=== PATIENT | female | born 1950 | race Caucasian/White ===

== ENCOUNTER 2016-07-26 09:55 | Emergency (ER) | payer MEDICARE, BC ==
[2016-07-26 11:05] VITALS: BP 153/88
--- NOTE | 2016-07-26 11:36 | UC ---
Throat Pain/Nasal Giovani HPI - HPI Summary HPI Summary: 2 days of worsening cough and sorethroat---She gets this every year and her pcp gives her antibiotics. Education provided re-viral illness anf the important to take a/b only should dx worsened and continue over another week - History of Current Complaint Chief Complaint: UCRespiratory Stated Complaint: COUGH, SORE THROAT Time Seen by Provider: 07/26/16 11:28 Hx Obtained From: Patient Hx Last Menstrual Period: NA ?: No Onset/Duration: Sudden Onset, Lasting Days - 2 Severity: Mild Cough: Nonproductive Associated Signs & Symptoms: Positive: Sinus Discomfort, Nasal Discharge - Allergies/Home Medications Allergies/Adverse Reactions: Allergies Allergy/AdvReac Type Severity Reaction Status Date / Time Amoxicillin [From Augmentin] Allergy Intermediate Swelling Verified 03/29/15 12: 11 Clarithromycin [From Biaxin] Allergy Intermediate Swelling Verified 03/29/15 12: 11 Clavulanic Acid Allergy Intermediate Swelling Verified 03/29/15 12:11 [From Augmentin] Erythromycin Allergy Intermediate Swelling Verified 03/29/15 12:11 Metformin Allergy Mild GI Upset Verified 03/29/15 12:11 Pioglitazone [From Actos] Allergy Mild GI Upset Verified 03/29/15 12:11 Home Medications: Home Medications Aspirin [Aspirin 81 MG TAB] 81 mg PO DAILY 07/26/16 [History Confirmed 07/26/16] PMH/Surg Hx/FS Hx/Imm Hx Previously Healthy: Yes Endocrine History Of: Reports: Diabetes Denies: Thyroid Disease Cardiovascular History Of: Denies: Cardiac Disorders, Hypertension, Pacemaker/ICD Respiratory History Of: Reports: Bronchitis - HAS HAD IN THE PAST Denies: COPD, Asthma GI/ History Of: Reports: Kidney Stones Denies: Ulcer, Renal Disease Psychological History Of: Reports: Anxiety, Depression - Surgical History Surgical History: Yes Surgery Procedure, Year, and Place: LEFT ANKLE Repair [facility] 2010. [place] LATERAL KNEE SURGERY LEFT 2010. right Hip Replacement July 2013 - Family History Known Family History: Positive: None Family History: no reported cardiovascular issues in family lineage - Social History Occupation: Retired Lives: With Family Alcohol Use: None Substance Use Type: None Smoking Status (MU): Never Smoked Tobacco Have You Smoked in the Last Year: No Review of Systems Constitutional: Negative Skin: Negative Eyes: Negative ENT: Sore Throat, Nasal Discharge Respiratory: Cough Cardiovascular: Negative Gastrointestinal: Negative Genitourinary: Negative Motor: Negative Neurovascular: Negative Musculoskeletal: Negative Neurological: Negative Psychological: Negative All Other Systems Reviewed And Are Negative: Yes Physical Exam Triage Information Reviewed: Yes Appearance: Well-Appearing, No Pain Distress, Well-Nourished Vital Signs: Initial Vital Signs Temp 97.7 F 07/26/16 11:03 Pulse 92 07/26/16 11:03 Resp 16 07/26/16 11:03 BP 153/88 07/26/16 11:03 Pulse Ox 98 07/26/16 11:03 Vital Signs Reviewed: Yes Eye Exam: Normal Eyes: Positive: Conjunctiva Clear ENT Exam: Normal ENT: Positive: Normal ENT inspection, Hearing grossly normal, Pharyngeal erythema, TMs normal. Negative: Nasal congestion, Nasal drainage, Tonsillar swelling, Tonsillar exudate, Trismus, Muffled/hoarse voice Dental Exam: Normal Neck exam: Normal Neck: Positive: Supple, Nontender, No Lymphadenopathy Respiratory Exam: Normal Respiratory: Positive: Chest non-tender, Lungs clear, Normal breath sounds, No respiratory distress, No accessory muscle use Cardiovascular Exam: Normal Cardiovascular: Positive: RRR, No Murmur, Pulses Normal Musculoskeletal Exam: Normal Musculoskeletal: Positive: Strength Intact, ROM Intact, No Edema Neurological Exam: Normal Neurological: Positive: Alert Psychological Exam: Normal Skin Exam: Normal Throat Pain/Nasal Course/Dx - Course Assessment/Plan: ALbuterol, robitussin and Codiene, doxycycline if not relief in sx (pt states is is not allergic to z-max, but got to the pharmacy and thought she was)rest increase fluids follow with pcp - Differential Dx/Diagnosis Differential Diagnosis/HQI/PQRI: Influenza, Otitis Media, Pharyngitis, Sinusitis , URI Provider Diagnoses: Bronchititis Discharge - Discharge Plan Condition: Stable Disposition: HOME Prescriptions: Albuterol HFA INHALER* [Ventolin HFA Inhaler*] 2 puff INH Q4H PRN #1 mdi PRN Reason: cough Azithromycin TAB* [Zithromax TAB (Z-GAUDENCIO) 250 mg #6 tabs] 2 tab PO SEE INSTRUCTIONS #1 gaudencio DOXYcycline CAP(*) [DOXYcycline 100MG CAP(*)] 100 mg PO BID #20 cap Spacer/Aerosol-Holding Chamber [Aerochamber Plus] 1 mis XX SEE INSTRUCTIONS #1 mis guaiFENesin/CODIEN 100MG-10MG* [Robitussin AC 100Mg-10Mg*] 10 ml PO Q6H PRN # 120 udc MDD 40cc PRN Reason: Cough Patient Education Materials: Acute Bronchitis (ED), DASH Eating Plan (ED), Hypertension (ED), How to Use a Metered-Dose Inhaler and a Spacer (ED) Referrals: Annie Sotelo RN [Primary Care Provider] - 2 Weeks Additional Instructions: Your Blood pressure today is 153/88...This is high and 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
== END 2016-07-26 11:50 | disposition home or self-care (01) ==
LOC: UCEAST 09:55
DX: J40 Bronchitis, not specified as acute or chronic (principal); E11.9 Type 2 diabetes mellitus without complications; N20.0 Calculus of kidney; F41.9 Anxiety disorder, unspecified; F32.9 Major depressive disorder, single episode, unspecified; Z88.3 Allergy status to other anti-infective agents; Z79.82 Long term (current) use of aspirin; Z96.641 Presence of right artificial hip joint
CPT/HCPCS: 99212; G0463

== ENCOUNTER 2016-09-05 11:43 | Emergency (ER) | payer MEDICARE, BC ==
[2016-09-05] MEDS ORDERED: NS 0.9% 1000 ML* 1,000 ML IV ONE (13:26)
[2016-09-05 13:39] LABS: Hematocrit 39 % (35-47); Hemoglobin 12.5 g/dl (12.0-16.0); Mean Corpuscular HGB Conc 32 g/dl (31-36); Mean Corpuscular Hemoglobin 29 pg (27-31); Mean Corpuscular Volume 88 fL (80-97); Mean Platelet Volume 8 um3 (7.4-10.4); Red Blood Count 4.37 10^6/ul (4.0-5.4); Red Cell Distribution Width 14 % (10.5-15); White Blood Count 15.7 10^3/ul (3.5-10.8)
[2016-09-05 13:43] LABS: Add Diff/Slide Review? Slide Review Added; Comments Flag Yes
[2016-09-05 13:54] LABS: Albumin 3.4 g/dL (3.2-5.2); BUN/Creatinine Ratio 15.7 (8-20); C Reactive Protein 242.51 mg/L (< 5.00); Calcium 9.4 mg/dL (8.6-10.3); EGFR African American 88.5 (>60); EGFR Non-African American 68.8 (>60); Globulin 3.7 g/dL (2-4); Potassium 4.3 mmol/L (3.5-5.0); Total Bilirubin 0.7 mg/dL (0.2-1.0); Total Protein 7.1 g/dL (6.4-8.9)
--- NOTE | 2016-09-05 15:38 | RAD ---
HISTORY: Right upper quadrant pain COMPARISONS: October 11, 2013 TECHNIQUE: Multiple transverse and longitudinal ultrasound images were obtained of the right upper quadrant of the abdomen using grayscale, color Doppler, and spectral Doppler imaging. FINDINGS: LIVER: The liver is diffusely echogenic and coarse in echotexture, with decreased acoustic transmission. The liver is otherwise normal in shape, size, and contour. There is normal monophasic hepatopedal flow of the portal vein on Doppler imaging. BILIARY TREE: There is no intrahepatic or extrahepatic biliary dilatation. The common duct measures 0.4 cm. GALLBLADDER: The gallbladder is distended. Multiple shadowing echogenic foci consistent with gallstones are noted. There is no gallbladder wall thickening, pericholecystic fluid, or sonographic Haskins sign. PANCREAS: The head of the pancreas is unremarkable. The tail of the pancreas is not well visualized secondary to overlying bowel gas. RIGHT KIDNEY: The right kidney is normal in shape, size, contour, and echogenicity. There is no hydronephrosis or nephrolithiasis. The right kidney measures 12.4 x 5.3 x 6.6 cm. AORTA AND IVC: The aorta and IVC are unremarkable. FLUID: There are no pleural effusions. There is no free fluid within the hepatorenal recess. OTHER FINDINGS: None. IMPRESSION: 1. CHOLELITHIASIS, WITHOUT SONOGRAPHIC FEATURES OF ACUTE CHOLECYSTITIS. 2. FATTY INFILTRATION OF THE LIVER
[2016-09-05] MEDS ORDERED: Iohexol 300* (CONTRAST) 10 ML SDV IV ONE (16:53)
[2016-09-05 18:48] LABS: Urine Bacteria Absent (Absent); Urine Bilirubin Negative (Negative); Urine Glucose Negative (Negative); Urine Nitrite Negative (Negative)
--- NOTE | 2016-09-05 19:46 | RAD ---
CLINICAL HISTORY: Right lower quadrant pain COMPARISON: October 11, 2013 TECHNIQUE: Multiple contiguous axial CT scans were obtained of the abdomen and pelvis after the administration of intravenous contrast. Coronal and sagittal multiplanar reformations are submitted for review. Oral contrast was administered. Delayed images were obtained through the abdomen and pelvis. FINDINGS: LUNG BASES: The lung bases are clear. LIVER: There is low-attenuation lesion of the right lobe of liver. This is stable from 2014. The stability is consistent with benign process. The liver is diffusely low in attenuation compared to the spleen BILE DUCTS: There is no intrahepatic or extrahepatic biliary dilatation. GALLBLADDER: Multiple gallstones are noted. There is no pericholecystic inflammatory change. PANCREAS: The pancreas is normal, without mass or ductal dilatation. SPLEEN: Normal in size and appearance. UPPER GI TRACT: Evaluation of the gastrointestinal tract is limited by incomplete gastric distention. The upper GI tract is unremarkable. SMALL BOWEL AND MESENTERY: The small bowel is normal in contour, course, and caliber. There is no obstruction or dilatation. COLON: There are multiple diverticula of the sigmoid colon, descending colon, and hepatic flexure. There is questionable polypoid mucosal thickening of the ascending colon.. There is no pericolonic inflammatory change. There is a tubular, vermiform, hollow viscus that is blind ending, and originates from the cecum, consistent with a normal appendix. There is no periappendiceal inflammatory change. This is best seen on axial images 53 through 61 ADRENALS: Normal bilaterally. KIDNEYS: There is a striated nephrogram on the right. There is no appreciable hydronephrosis or nephrolithiasis, though evaluation of the distal ureters limited by streak artifact from a right hip prosthesis. BLADDER: The bladder is smooth in contour. PELVIC ORGANS: The uterus appears fibroid AORTA: The aorta is normal. IVC: Unremarkable LYMPH NODES: There is no lymphadenopathy by size criteria. ABDOMINAL WALL: There is no evidence for abdominal wall hernia. BONES AND SOFT TISSUES: Degenerative changes are noted of the spine. The patient is status post right hip arthroplasty OTHER: None IMPRESSION: 1. NORMAL APPENDIX. 2. STRIATED NEPHROGRAM OF THE RIGHT KIDNEY SUGGESTIVE OF PYELONEPHRITIS. 3. CHOLELITHIASIS. 4. DIVERTICULOSIS. 5. THERE IS QUESTIONABLE POLYP WITH MUCOSAL THICKENING OF THE COLON NEAR THE HEPATIC FLEXURE. RECOMMEND CONSIDERATION OF CORRELATION WITH DIRECT VISUALIZATION IN THE NONACUTE SETTING. 6. FATTY LIVER. 7. FIBROID UTERUS
[2016-09-05] MEDS ORDERED: HYDROcodone/ACETAMIN 5-325 MG* 1 TAB PO ONE (20:16)
[2016-09-05] MEDS: Ciprofloxacin TAB* 500 MG PO ONE ×2 (20:56)
[2016-09-05 21:07] VITALS: BP 144/66
--- NOTE | 2016-09-06 12:47 | ED ---
olivia Morales Timothy, scribed for Matt Howard MD on 09/05/16 at 1316 . Abdominal Pain/Female - HPI Summary HPI Summary: La Nena Leon is a 65 yo female presenting to [facility] with 2/10 intermittent "pulsating" RLQ abd pain for the past week accompanied by chills, diaphoresis, nausea, myalgia, fatigue, and loss of appetite. She states she vomited 1x and that it was pure fluid due to her lack of appetite. She also claims her stool looks "peace". She states she was in [place] recently and when there was constipated , but upontaking a laxative she noticed the peace stools. She states that rubbing the tender area of her abd alleviates some of the pain. She denies any diarrhea or urinary Sx. She states she had bronchitis recently. Her MHx includes bronchitis, kidney stones, DM, depression, anxiety. - History of Current Complaint Chief Complaint: EDAbdPain Stated Complaint: LOW ABD PAIN Time Seen by Provider: 09/05/16 13:11 Hx Obtained From: Patient Hx Last Menstrual Period: NA Onset/Duration: Gradual Onset, Lasting Days, Still Present Timing: Constant Severity Initially: Moderate Severity Currently: Moderate Pain Intensity: 2 Pain Scale Used: 0-10 Numeric Location: Discrete At: RLQ Radiates: No Character: Other: - "pulsating" Alleviating Factor(s): Other: - rubbing of tender area Associated Signs and Symptoms: Positive: Diaphoresis, Constipation, Nausea, Vomiting, Other: - myalgia, fatigue, chills, loss of appetite Allergies/Adverse Reactions: Allergies Allergy/AdvReac Type Severity Reaction Status Date / Time Amoxicillin [From Augmentin] Allergy Intermediate Swelling Verified 09/05/16 16: 51 Clarithromycin [From Biaxin] Allergy Intermediate Swelling Verified 09/05/16 16: 51 Clavulanic Acid Allergy Intermediate Swelling Verified 09/05/16 16:51 [From Augmentin] Erythromycin Allergy Intermediate Swelling Verified 09/05/16 16:51 Metformin Allergy Mild GI Upset Verified 09/05/16 16:51 Pioglitazone [From Actos] Allergy Mild GI Upset Verified 09/05/16 16:51 Home Medications: Home Medications Aspirin EC Low Dose* [Ecotrin EC Low Dose 81 MG*] 81 mg PO DAILY 09/05/16 [ History Confirmed 09/05/16] Glimepiride [Amaryl] 0.5 - 1 mg PO BID 09/05/16 [History Confirmed 09/05/16] SitaGLIPtin (NF) [Januvia (NF)] 100 mg PO DAILY 09/05/16 [History Confirmed ] PMH/Surg Hx/FS Hx/Imm Hx Endocrine/Hematology History: Reports: Hx Diabetes Denies: Hx Thyroid Disease Cardiovascular History: Denies: Hx Hypertension, Hx Pacemaker/ICD Respiratory History: Denies: Hx Asthma, Hx Chronic Obstructive Pulmonary Disease (COPD) GI History: Denies: Hx Ulcer History: Reports: Hx Kidney Stones Denies: Hx Renal Disease Sensory History: Reports: Hx Contacts or Glasses - GLASSES Denies: Hx Hearing Aid Opthamlomology History: Reports: Hx Contacts or Glasses - GLASSES Psychiatric History: Reports: Hx Anxiety, Hx Depression Denies: Hx Panic Disorder - Surgical History Surgery Procedure, Year, and Place: LEFT ANKLE Repair [facility] 2010. [place] LATERAL KNEE SURGERY LEFT 2010. right Hip Replacement July 2013 Hx Anesthesia Reactions: No Infectious Disease History: No Infectious Disease History: Denies: Hx Clostridium Difficile, Hx Hepatitis, Hx Human Immunodeficiency Virus (HIV), Hx of Known/Suspected MRSA, Hx Shingles, Hx Tuberculosis, Hx Known/ Suspected VRE, Hx Known/Suspected VRSA, History Other Infectious Disease, Traveled Outside the [place] in Last 30 Days - Family History Known Family History: Positive: Hypertension, Diabetes Negative: Cardiac Disease, Blood Disorder Family History: no reported cardiovascular issues in family lineage - Social History Alcohol Use: None Substance Use Type: Reports: None Smoking Status (MU): Never Smoked Tobacco Have You Smoked in the Last Year: No Review of Systems Positive: Chills, Fatigue, Skin Diaphoresis Eyes: Negative ENT: Negative Cardiovascular: Negative Respiratory: Negative Positive: Abdominal Pain, Vomiting, Nausea, Other - constipation, peace stool, loss of appetite. Negative: Diarrhea Genitourinary: Negative Positive: Myalgia Skin: Negative Neurological: Negative Psychological: Normal All Other Systems Reviewed And Are Negative: Yes Physical Exam Triage Information Reviewed: Yes Vital Signs On Initial Exam: Initial Vitals Temp Pulse Resp BP Pulse Ox 97.6 F 88 20 118/64 97 09/05/16 11:58 09/05/16 11:58 09/05/16 11:58 09/05/16 11:58 09/05/16 11:58 Vital Signs Reviewed: Yes Appearance: Positive: No Pain Distress, Well-Nourished, Ill-Appearing Skin: Positive: Warm, Skin Color Reflects Adequate Perfusion, Dry Head/Face: Positive: Normal Head/Face Inspection Eyes: Positive: Normal ENT: Positive: Normal ENT inspection, Other - moist oral mucosa Neck: Positive: Supple, Nontender Respiratory/Lung Sounds: Positive: Clear to Auscultation, Breath Sounds Present Cardiovascular: Positive: RRR Abdomen Description: Positive: Soft. Negative: Nontender - Tenderness in the RUQ Bowel Sounds: Positive: Present Musculoskeletal: Positive: Normal Neurological: Positive: Normal Psychiatric: Positive: Normal, Affect/Mood Appropriate - [place] Coma Scale Coma Scale Total: 15 Diagnostics - Vital Signs Vital Signs Temp Pulse Resp BP Pulse Ox 09/05/16 13:00 83 18 127/72 96 09/05/16 12:54 136 88 09/05/16 12:52 117/88 09/05/16 12:01 97.6 F 89 20 118/64 94 09/05/16 11:58 97.6 F 88 20 118/64 97 - Laboratory Lab Results: Lab Results 09/05/16 09/05/16 09/05/16 Range/Units 13:27 13:27 13:27 WBC 15.7 H (3.5-10.8) 10^3/ul RBC 4.37 (4.0-5.4) 10^6/ul Hgb 12.5 (12.0-16.0) g/dl Hct 39 (35-47) % MCV 88 (80-97) fL MCH 29 (27-31) pg MCHC 32 (31-36) g/dl RDW 14 (10.5-15) % Plt Count 305 (150-450) 10^3/ul MPV 8 (7.4-10.4) um3 Neut % (Auto) 75.5 (38-83) % Lymph % (Auto) 12.2 L (25-47) % [place] % (Auto) 10.3 H (1-9) % Eos % (Auto) 1.0 (0-6) % Baso % (Auto) 1.0 (0-2) % Absolute Neuts (auto) 11.9 H (1.5-7.7) 10^3/ul Absolute Lymphs (auto) 1.9 (1.0-4.8) 10^3/ul Absolute Monos (auto) 1.6 H (0-0.8) 10^3/ul Absolute Eos (auto) 0.1 (0-0.6) 10^3/ul Absolute Basos (auto) 0.2 (0-0.2) 10^3/ul Absolute Nucleated RBC 0 10^3/ul Nucleated RBC % 0 Sodium 132 L (133-145) mmol/L Potassium 4.3 (3.5-5.0) mmol/L Chloride 98 L (101-111) mmol/L Carbon Dioxide 25 (22-32) mmol/L Anion Gap 9 (2-11) mmol/L BUN 13 (6-24) mg/dL Creatinine 0.83 (0.51-0.95) mg/dL Est GFR ( Amer) 88.5 (>60) Est GFR (Non-Af Amer) 68.8 (>60) BUN/Creatinine Ratio 15.7 (8-20) Glucose 166 H (70-100) mg/dL Lactic Acid 0.8 (0.5-2.0) mmol/L Calcium 9.4 (8.6-10.3) mg/dL Total Bilirubin 0.70 (0.2-1.0) mg/dL AST 19 (13-39) U/L ALT 25 (7-52) U/L Alkaline Phosphatase 70 (34-104) U/L C-Reactive Protein 242.51 H (< 5.00) mg/L Total Protein 7.1 (6.4-8.9) g/dL Albumin 3.4 (3.2-5.2) g/dL Globulin 3.7 (2-4) g/dL Albumin/Globulin Ratio 0.9 L (1-3) Lipase 16 (11.0-82.0) U/L Urine Color Urine Appearance Urine pH (5-9) Ur Specific [place] (1.010-1.030) Urine Protein (Negative) Urine Ketones (Negative) Urine Blood (Negative) Urine Nitrate (Negative) Urine Bilirubin (Negative) Urine Urobilinogen (Negative) Ur Leukocyte Esterase (Negative) Urine WBC (Auto) (Absent) Urine RBC (Auto) (Absent) Ur Squamous Epith Cells (Absent) Ur Transition Epith Cell (Absent) Urine Bacteria (Absent) Urine Glucose (Negative) 09/05/16 Range/Units 18:35 WBC (3.5-10.8) 10^3/ul RBC (4.0-5.4) 10^6/ul Hgb (12.0-16.0) g/dl Hct (35-47) % MCV (80-97) fL MCH (27-31) pg MCHC (31-36) g/dl RDW (10.5-15) % Plt Count (150-450) 10^3/ul MPV (7.4-10.4) um3 Neut % (Auto) (38-83) % Lymph % (Auto) (25-47) % [place] % (Auto) (1-9) % Eos % (Auto) (0-6) % Baso % (Auto) (0-2) % Absolute Neuts (auto) (1.5-7.7) 10^3/ul Absolute Lymphs (auto) (1.0-4.8) 10^3/ul Absolute Monos (auto) (0-0.8) 10^3/ul Absolute Eos (auto) (0-0.6) 10^3/ul Absolute Basos (auto) (0-0.2) 10^3/ul Absolute Nucleated RBC 10^3/ul Nucleated RBC % Sodium (133-145) mmol/L Potassium (3.5-5.0) mmol/L Chloride (101-111) mmol/L Carbon Dioxide (22-32) mmol/L Anion Gap (2-11) mmol/L BUN (6-24) mg/dL Creatinine (0.51-0.95) mg/dL Est GFR ( Amer) (>60) Est GFR (Non-Af Amer) (>60) BUN/Creatinine Ratio (8-20) Glucose (70-100) mg/dL Lactic Acid (0.5-2.0) mmol/L Calcium (8.6-10.3) mg/dL Total Bilirubin (0.2-1.0) mg/dL AST (13-39) U/L ALT (7-52) U/L Alkaline Phosphatase (34-104) U/L C-Reactive Protein (< 5.00) mg/L Total Protein (6.4-8.9) g/dL Albumin (3.2-5.2) g/dL Globulin (2-4) g/dL Albumin/Globulin Ratio (1-3) Lipase (11.0-82.0) U/L Urine Color Yellow Urine Appearance Clear Urine pH 6.0 (5-9) Ur Specific [place] 1.008 L (1.010-1.030) Urine Protein 1+(30 mg/dl) H (Negative) Urine Ketones Negative (Negative) Urine Blood Negative (Negative) Urine Nitrate Negative (Negative) Urine Bilirubin Negative (Negative) Urine Urobilinogen Negative (Negative) Ur Leukocyte Esterase Trace H (Negative) Urine WBC (Auto) Trace(0-5/hpf) (Absent) Urine RBC (Auto) Trace(0-2/hpf) (Absent) Ur Squamous Epith Cells Present H (Absent) Ur Transition Epith Cell Present H (Absent) Urine Bacteria Absent (Absent) Urine Glucose Negative (Negative) Result Diagrams: 09/05/16 13:27 09/05/16 13:27 Lab Statement: Any lab studies that have been ordered have been reviewed, and results considered in the medical decision making process. - CT A/P CT Interpretation: Positive (See Comments) - IMPRESSION: 1. NORMAL APPENDIX. 2. STRIATED NEPHROGRAM OF THE RIGHT KIDNEY SUGGESTIVE OF PYELONEPHRITIS. 3. CHOLELITHIASIS. 4. DIVERTICULOSIS. 5. THERE IS QUESTIONABLE POLYP WITH MUCOSAL THICKENING OF THE COLON NEAR THE HEPATIC FLEXURE. RECOMMEND CONSIDERATION OF CORRELATION WITH DIRECT VISUALIZATION IN THE NONACUTE SETTING. 6. FATTY LIVER. 7. FIBROID UTERUS CT Interpretation Completed By: Radiologist - Ultrasound No standard instances Ultrasound Interpretation: Positive (See Comments) - IMPRESSION: 1. CHOLELITHIASIS, WITHOUT SONOGRAPHIC FEATURES OF ACUTE CHOLECYSTITIS. 2. FATTY INFILTRATION OF THE LIVER Ultrasound Interpretation Completed By: Radiologist - Gallbladder US Re-Evaluation - Re-Evaluation First Eval Re-Evaluation Time: 16:14 Change: Unchanged Comment: Discussed lab and imaging results with Pt, suggested CT A/P. Pt is agreeable to this course. Abdominal Pain Fem Course/Dx - Course Course Of Treatment: La Nena Leon is a 65 yo female presenting to [facility] with 2/ 10 "pulsating" RLQ abd pain with fatigue, chills, diaphoresis, nausea, myalgia, and loss of appetite for the past week. Pt medication list is reviewed this visit. In the ED course she received IV fluids. Her Gallbladder US suggests cholelithiasis without cholecystitis. Her CT A/P suggests: IMPRESSION: 1. NORMAL APPENDIX. 2. STRIATED NEPHROGRAM OF THE RIGHT KIDNEY SUGGESTIVE OF PYELONEPHRITIS. 3. CHOLELITHIASIS. 4. DIVERTICULOSIS. 5. THERE IS QUESTIONABLE POLYP WITH MUCOSAL THICKENING OF THE COLON NEAR THE HEPATIC. FLEXURE. RECOMMEND CONSIDERATION OF CORRELATION WITH DIRECT VISUALIZATION IN THE NONACUTE. SETTING. 6. FATTY LIVER. 7. FIBROID UTERUS. The source of Ms. Leon's symptoms is still uncertain. She clearly has a UTI without hydronephrosis. We could be missing a stone. Her WBC's are up a bit and this is nonspecific. I recommended covering the U/A, symptomatic treatment and close F/U. - Diagnoses Provider Diagnoses: Pyelonephritis Discharge - Discharge Plan Condition: Stable Disposition: HOME Prescriptions: Ciprofloxacin TAB* [Cipro Tab*] 500 mg PO BID #20 tab HYDROcodone/ACETAMIN 5-325 MG* [[place] 5-325 TAB*] 1 tab PO Q6H PRN #20 tab MDD 4 PRN Reason: Pain Patient Education Materials: Kidney Infection (ED) Referrals: Sanjiv ARMAS CREATIVE WRITING PROFESSOR,Annie [Primary Care Provider] - 2 Days Additional Instructions: Please follow up with your primary care physician regarding your visit to the emergency department today. Return to the emergency department with any new or recurring symptoms. The documentation as recorded by the olivia ly Timothy accurately reflects the service I personally performed and the decisions made by me, Matt Howard MD.
== END 2016-09-05 21:05 | disposition home or self-care (01) ==
LOC: ED 11:43
DX: N12 Tubulo-interstitial nephritis, not specified as acute or chronic (principal); R10.31 Right lower quadrant pain; K59.00 Constipation, unspecified; R11.2 Nausea with vomiting, unspecified; R53.83 Other fatigue; R63.0 Anorexia
CPT/HCPCS: 36415; 74177; 76705; 80053; 81003; 81015; 83605; 83690; 85025; 86140; 87040; 87086; 99283; A9270-GY; Q9967

== ENCOUNTER 2017-05-05 11:13 | Emergency (ER) | payer MEDICARE, BC ==
--- NOTE | 2017-05-05 12:23 | UC ---
UC General HPI - HPI Summary HPI Summary: 66 y/o female presents to the urgent care c/o mild lower back pain,fatigue, mild dizziness at times for the past 4 weeks. Pt reports symptoms started w/ the common cold, then she developed nasal congestion AVERY, diarrhea on and off and chills. She went to see her PCP about a weeks ago and she tested Negative for the flu. Her PCP told her it was a viral syndrome. However for the past week she has felt fatigue, sleeping too much and yesterday she developed mild lower back pain w/ hesitancy on urination. Pt states her HgA1c was 5.7 last week. She has decrease appetite, but she has been drinking fluids. AVERY is like dull 3/10, pressure like at times. She feels dizzy when she get up. Pt denies nasal congestion, cough, fever, SOB, chest pain, abdominal pain, Pelvic pain, N/ V/D. - History of Current Complaint Chief Complaint: UCGeneralIllness Stated Complaint: LOWER BACK PAIN DIARRHEA HEADACHE DIZZY Time Seen by Provider: 05/05/17 12:06 Hx Obtained From: Patient Hx Last Menstrual Period: NA Onset/Duration: Gradual Onset, Lasting Weeks - 4 weeks, Still Present, Worse Since - past week Timing: Constant Onset Severity: Moderate Current Severity: Mild Pain Intensity: 3 Associated Signs & Symptoms: Positive: Back Pain - mild lower back pain, Dizziness, Dysuria, Headache, Weakness. Negative: Confusion, Cough, Chest Pain , Decreased Responsiveness, Diarrhea, Decreased Oral Intake, Diaphoresis, Edema , Fever, Hematemesis, Hemoptysis, Immunocompromised, Melena, Nausea, Palpitations, Recent Medication Changes, Syncope, SOB, Vomiting, Wheezing - Allergy/Home Medications Allergies/Adverse Reactions: Allergies Allergy/AdvReac Type Severity Reaction Status Date / Time amoxicillin Allergy Rash Verified 05/05/17 11:59 clarithromycin [From Biaxin] Allergy Rash Verified 05/05/17 11:59 clavulanic acid Allergy Rash Verified 05/05/17 11:59 [From Augmentin] erythromycin base Allergy Rash Verified 05/05/17 11:59 metformin Allergy Rash Verified 05/05/17 11:59 pioglitazone [From Actos] Allergy Rash Verified 05/05/17 11:59 PMH/Surg Hx/FS Hx/Imm Hx Previously Healthy: Yes Endocrine History: Diabetes Psychological History: Depression - Surgical History Surgical History: Yes Surgery Procedure, Year, and Place: LEFT ANKLE Repair [facility] 2010. [place] LATERAL KNEE SURGERY LEFT 2010. right Hip Replacement July 2013 - Family History Known Family History: Positive: None, Hypertension, Diabetes Negative: Cardiac Disease, Blood Disorder Family History: no reported cardiovascular issues in family lineage - Social History Occupation: Retired Lives: With Family Alcohol Use: None Substance Use Type: None Smoking Status (MU): Never Smoked Tobacco Have You Smoked in the Last Year: No Review of Systems Constitutional: Negative Skin: Negative Eyes: Negative ENT: Ear Ache - RT ear pressure Respiratory: Negative Cardiovascular: Negative Gastrointestinal: Negative Genitourinary: Other - hesitancy Motor: Weakness Neurovascular: Negative Musculoskeletal: Other: - mild lower back pain Neurological: Headache Psychological: Negative Is Patient Immunocompromised?: No All Other Systems Reviewed And Are Negative: Yes Physical Exam Triage Information Reviewed: Yes Vital Signs: Initial Vital Signs Temp 98.1 F 05/05/17 11:53 Pulse 82 05/05/17 11:53 Resp 14 05/05/17 11:53 BP 141/85 05/05/17 11:53 Pulse Ox 99 05/05/17 11:53 - Additional Comments Vital Signs Reviewed: Yes General: well developed well nourished female sitting in the examining table w/ o any apparent distress Eyes: Positive: Conjunctiva Clear - PERRLA, EOMI, fundi grossly normal ENT: Positive: Normal ENT inspection, Hearing grossly normal, Pharynx normal, TMs normal - RT external ear canal impacted w/ cerumen unable to visualize TM. LF external ear canal clear and LF TM WNL, Other: - no maxillary or frontal sinus tenderness on percussion. Negative Nusrat-hallpike maneuver. Negative: Tonsillar swelling, Tonsillar exudate Dental Exam: Normal Neck: Positive: Supple, Nontender, No Lymphadenopathy Respiratory: Positive: Chest non-tender, Lungs clear, Normal breath sounds Cardiovascular: Positive: RRR, No Murmur, Pulses Normal, Brisk Capillary Refill Abdomen Description: Positive: Nontender, No Organomegaly, Soft. Negative: CVA Tenderness (R), CVA Tenderness (L) Bowel Sounds: Positive: Present Musculoskeletal Exam: Normal Musculoskeletal: Positive: Strength Intact, ROM Intact, No Edema Neurological Exam: Normal Neurological: Positive: Alert, Muscle Tone Normal, Other: - -Neuro: A&O x4, GCS 15, CN II-XII intact, no focal neuro deficits, normal [id number] or heel-to- hernandez testing. Romberg neg, no pronator drift, normal rapid alternating movements. Gait is normal, Psychological Exam: Normal Skin Exam: Normal Course/Dx - Course Course Of Treatment: 66 y/o female presents to the urgent care c/o mild lower back pain,fatigue, mild dizziness at times for the past 4 weeks. Pt reports symptoms started w/ the common cold, then she developed nasal congestion AVERY, diarrhea on and off and chills. She went to see her PCP about a weeks ago and she tested Negative for the flu. Her PCP told her it was a viral syndrome. However for the past week she has felt fatigue, sleeping too much and yesterday she developed mild lower back pain w/ hesitancy on urination. Pt states her HgA1c was 5.7 last week. She has decrease appetite, but she has been drinking fluids. AVERY is like dull 3/10, pressure like at times. She feels dizzy when she get up. Pt denies nasal congestion, cough, fever, SOB, chest pain, abdominal pain, Pelvic pain, N/V/D. Hx obtained. Pt w/ Dysuria and RT cerumen impaction on examiantion. RT ear irrigation performed by Nurse. RT external ear canl still w/ mild cerumen. Pt Rx debrox otic drops to soften cerumen. Orthostatic vital signs are WNL. UA: +leukoesteraces only. However Pt w/ Hx of recurrent UTI. Pt will be Rx macrobid and Pyridium Prophylactically. Urine sent for culture to r/o any abnormality. Pt will be notified of reult for further treatment or to stop medication.Pt's BP is elevated today advised to decrease salt in diet, monitor BP and f/u with PCP for further management Pt explained D/ c instructions.Pt understood and agreed w/ plan of care.Left the clinic ambulating , A&OX3 - Differential Dx - Multi-Symptom Differential Diagnoses: Urinary Tract Infection, Other Provider Diagnoses: 1-UTI. 2-Dysuria. 3-RT exteral ear canal cerumen impaction. 4-Elevated BP w/o Hx of HTN Discharge - Discharge Plan Condition: Stable Disposition: HOME Prescriptions: Carbamide Peroxide 6.5% OTIC* [DEBROX 6.5% Otic*] 5 drop RIGHT EAR BID #1 bottle Nitrofurantoin Macrocrystals* [Macrodantin*] 50 mg PO BID #14 cap Phenazopyridine TAB* [Pyridium 100 mg TAB*] 100 mg PO TID #6 tab Patient Education Materials: Urinary Tract Infection in Women (ED), Cerumen Impaction (ED), Low-Sodium Diet (ED) Referrals: Sanjiv ARMAS [employer]UNICATION ELECTRONIC TECHNICIAN,Annie [Primary Care Provider] - 3 Days Additional Instructions: 1- Please take Macrodantin 50mg PO BID x 7 days. Pyridium 100 mg PO TID x 2 days to alleviate urinary symptoms. Increase increase fluid intake. drink cranberry juice. 2-Urine sent for culture if any abnormality, you will be notified for further treatment. 3-Take tylenol PO to alleviate Headache. F/u wih your PCP in 2-3 days if not improvement of symptoms. If you developed severe dizziness and AVERY please go immediately to the ER for further treatment. Eat well , small portions, and drink plenty of fluids. 4-apply otic drops as directed to clear ear canal completely 4-Your BP is elevated today. please decrease salt in your diet, monitor BP and if it continues to be elevated please f/u with your PCP for further management
[2017-05-05 13:31] VITALS: BP 153/92
== END 2017-05-05 13:41 | disposition home or self-care (01) ==
LOC: UCEAST 11:13
DX: N39.0 Urinary tract infection, site not specified (principal); R30.0 Dysuria; H61.21 Impacted cerumen, right ear; R03.0 Elevated blood-pressure reading, without diagnosis of hypertension; M54.5 Low back pain; R42 Dizziness and giddiness; R51 Headache; R53.1 Weakness; E11.9 Type 2 diabetes mellitus without complications; F32.9 Major depressive disorder, single episode, unspecified; Z88.1 Allergy status to other antibiotic agents; Z88.8 Allergy status to other drugs, medicaments and biological substances; Z96.641 Presence of right artificial hip joint
CPT/HCPCS: 81003; 87086; 99213; G0463

== ENCOUNTER 2017-12-20 11:22 | Emergency (ER) | payer MEDICARE, BC ==
[2017-12-20 11:34] VITALS: BP 149/95
--- NOTE | 2017-12-20 11:43 | UC ---
Respiratory Complaint HPI - HPI Summary HPI Summary: c/o nasal congestion, malaise for the past 3 days and feeling of wheezing and hollowness in the chest. Cough is dry and happens at day and during the night. Denies fever , nasal discharge, facial pain or general malaise. She had remotely used inhalers for a short time but not ever since. Denies tobacco use, second hand smoking or history of asthma. Denies history of HTN - History of Current Complaint Chief Complaint: UCRespiratory Stated Complaint: COUGH Hx Obtained From: Patient Hx Last Menstrual Period: NA ?: No Onset/Duration: Gradual Onset, Lasting Days Timing: Intermittent Episodes Severity Initially: Mild Severity Currently: Moderate Pain Intensity: 0 Character: Cough: Nonproductive Alleviating Factors: Nothing Associated Signs And Symptoms: Positive: Wheezing - Risk Factors Pulmonary Embolism Risk Factors: Negative Cardiac Risk Factors: Negative Pseudomonas Risk Factors: Negative Tuberculosis Risk Factors: Negative - Allergies/Home Medications Allergies/Adverse Reactions: Allergies Allergy/AdvReac Type Severity Reaction Status Date / Time amoxicillin Allergy Rash Verified 12/20/17 11:37 clarithromycin [From Biaxin] Allergy Rash Verified 12/20/17 11:37 clavulanic acid Allergy Rash Verified 12/20/17 11:37 [From Augmentin] erythromycin base Allergy Rash Verified 12/20/17 11:37 metformin Allergy Rash Verified 12/20/17 11:37 pioglitazone [From Actos] Allergy Rash Verified 12/20/17 11:37 PMH/Surg Hx/FS Hx/Imm Hx Endocrine History: Diabetes Psychological History: Depression - Surgical History Surgical History: Yes Surgery Procedure, Year, and Place: LEFT ANKLE Repair [facility] 2010. [place] LATERAL KNEE SURGERY LEFT 2010. right Hip Replacement July 2013 - Family History Known Family History: Positive: None, Hypertension, Diabetes Negative: Cardiac Disease, Blood Disorder Family History: no reported cardiovascular issues in family lineage - Social History Alcohol Use: None Substance Use Type: None Smoking Status (MU): Never Smoked Tobacco Have You Smoked in the Last Year: No Review of Systems Constitutional: Negative Respiratory: Shortness Of Breath, Cough All Other Systems Reviewed And Are Negative: Yes Physical Exam Triage Information Reviewed: Yes Appearance: Well-Appearing, No Pain Distress, Well-Nourished Vital Signs: Initial Vital Signs Temp 97 F 12/20/17 11:32 Pulse 98 12/20/17 11:32 Resp 18 12/20/17 11:32 BP 149/95 12/20/17 11:32 Pulse Ox 98 12/20/17 11:32 Vital Signs Reviewed: Yes Eyes: Positive: Conjunctiva Clear ENT: Positive: Hearing grossly normal, Pharynx normal, TMs normal, Uvula midline Neck: Positive: Supple, Nontender, No Lymphadenopathy Respiratory: Positive: Chest non-tender, Lungs clear, Normal breath sounds, No respiratory distress, Other: - wheezing on forced espiration Cardiovascular: Positive: RRR, No Murmur, Pulses Normal, Brisk Capillary Refill Abdomen Description: Positive: Nontender, No Organomegaly, Soft Bowel Sounds: Positive: Present Musculoskeletal: Positive: Strength Intact, ROM Intact, No Edema Neurological: Positive: Alert, Muscle Tone Normal, Fatigued Skin Exam: Normal UC Diagnostic Evaluation - Laboratory O2 Sat by Pulse Oximetry: 98 Respiratory Course/Dx - Course Course Of Treatment: Patient was given a nebulization with Duoneb and responded to it experiencing clinical improvement. Patient to start symbicort and benzonatate as prescribed and follow up with PCP in one week - Differential Dx/Diagnosis Provider Diagnoses: Acute bronchitis. Elevated BP without history of HTN Discharge - Sign-Out/Discharge Documenting (check all that apply): Patient Departure All imaging exams completed and their final reports reviewed: No Studies - Discharge Plan Condition: Stable Disposition: HOME Patient Education Materials: Benzonatate (By mouth), Budesonide/Formoterol (By breathing), Acute Bronchitis (ED) Referrals: Sanjiv COMBSPAnnie [Primary Care Provider] - - Billing Disposition and Condition Condition: STABLE Disposition: Home
[2017-12-20] MEDS ORDERED: Albuterol/Ipratropium NEB.SOL* Albuterol 2.5 MG/Ipratropium 0.5 MG 3 ML INH ONE (11:44)
== END 2017-12-20 12:14 | disposition home or self-care (01) ==
LOC: UCEAST 11:22
DX: J20.9 Acute bronchitis, unspecified (principal); R03.0 Elevated blood-pressure reading, without diagnosis of hypertension; Z96.641 Presence of right artificial hip joint; Z88.1 Allergy status to other antibiotic agents; Z88.0 Allergy status to penicillin; Z88.8 Allergy status to other drugs, medicaments and biological substances
CPT/HCPCS: 99212; A9270-GY; G0463

== ENCOUNTER 2019-01-27 08:43 | Day surgery (SDC) | payer MEDICARE, BC ==
[~2019-01-27 08:43] MED LIST: Buffered Lidocaine 1% SYRIN* 1 ML/SYRINGE INTRADERM ONE
[2019-01-27] MEDS ORDERED: Midazolam* 1 MG/ML 2 ML VIAL (2 MG) ONE (10:54)
[2019-01-27 12:25] VITALS: BP 160/97
--- NOTE | 2019-01-27 12:57 | OP ---
DATE OF OPERATION: 01/27/19 FORMERLY [facility] DATE OF : 48 SURGEON: Sunil Soriano M.D. PREOPERATIVE DIAGNOSIS: Cataract, right eye. POSTOPERATIVE DIAGNOSIS: Cataract, right eye. OPERATIVE PROCEDURE: Extracapsular cataract extraction with intraocular lens implant, right eye. DESCRIPTION OF PROCEDURE: The patient was brought to the operating room after being given 1/2% Alcaine with epinephrine drops in the preoperative area. The eye was prepped and draped in the usual sterile fashion. Sterile drape and eyelid speculum were placed. Again, topical 1/2% Alcaine with epinephrine was given. A paracentesis incision was made at the 9 o'clock position with the No.75 blade. Clear cornea incision 2.2 x 2.2-mm was created at the 12 o'clock position starting at the anterior limbus using the 2.2-mm keratome. The anterior chamber was irrigated with 0.4 mL of 1% non-preservative intracameral lidocaine and filled with DisCoVisc. A capsulorrhexis was completed using the cystotome and the Utrata forceps. Hydrodissection was performed with balanced salt solution. The lens nucleus was removed with the Phacoemulsification handpiece without incident. Cortex was removed with the irrigation-aspiration handpiece. The capsular bag was re-inflated using DisCoVisc and an [id number] 23.5 implant was inserted with the shooter. The irrigation-aspiration handpiece was used to remove all residual DisCoVisc. The eye was refilled with balanced salt solution and the wound checked and found to be watertight. Topical Maxitrol drops were given. [id number]/[facility] #: [id number] MTDD
[2019-01-27] MEDS ORDERED: Povidone Iodine 5% OPTH* 30 ML BTL ONE (13:52)
[2019-01-27] MEDS ORDERED: Lidocaine 1% MPF ** 5 ML VIAL ONE (13:52)
[2019-01-27] MEDS ORDERED: Proparacaine 0.5% OPHTH.SOL* 15 ML BTL ONE (13:52)
[2019-01-27] MEDS ORDERED: Ketorolac 0.5% OPHTH (NF) 0.5 % 5 ML BTL ONE (13:52)
[2019-01-27] MEDS ORDERED: Phenylephrine OPHTH SOL 2.5%* 2 ML ONE (13:52)
[2019-01-27] MEDS ORDERED: acetaZOLAMIDE TAB* 250 MG ONE (13:52)
[2019-01-27] MEDS ORDERED: Cyclopentolate 1% OPTH.SOL* 2 ML BTL ONE (13:52)
[2019-01-27] MEDS ORDERED: Neomycin/Polymy/Dex OPTH.SUSP* MAXITROL 0.1% 5 ML ONE (13:52)
[2019-01-27] MEDS ORDERED: Lidocaine 2% w/ EPI 1:200,000* 20 ML SDV VIAL ONE (13:52)
== END 2019-01-27 11:57 | disposition home or self-care (01) ==
LOC: OREAST 08:43
PROVIDERS: ATTEND Specialist
DX: H25.811 Combined forms of age-related cataract, right eye (principal); E11.9 Type 2 diabetes mellitus without complications; Z79.84 Long term (current) use of oral hypoglycemic drugs; M79.7 Fibromyalgia; E78.00 Pure hypercholesterolemia, unspecified; Z87.442 Personal history of urinary calculi
CPT/HCPCS: A9270-GY; J2250; V2632

== ENCOUNTER 2019-02-03 06:14 | Day surgery (SDC) | payer MEDICARE, BC ==
[2019-02-03] MEDS ORDERED: Midazolam* 1 MG/ML 2 ML VIAL (2 MG) ONE (07:28)
[2019-02-03 08:59] VITALS: BP 161/84
--- NOTE | 2019-02-03 09:11 | OP ---
OPERATIVE NOTE: DATE OF OPERATION: 02/03/19 DATE OF : 48 SURGEON: Sunil Soirano M.D. PREOPERATIVE DIAGNOSIS: Cataract, left eye. POSTOPERATIVE DIAGNOSIS: Cataract, left eye. OPERATIVE PROCEDURE: Extracapsular cataract extraction with IOL implant, left eye. PROCEDURE: The patient was brought to the operating room after being given 1/2% Alcaine with epineph rine drops in the preoperative area. The eye was prepped and draped in the usual sterile fashion. S terile drape and eyelid speculum were placed. Again, topical 1/2% Alcaine with epinephrine was given . A paracentesis incision was made at the 3 o'clock position with the No.75 blade. Clear cornea inc ision 2.2 x 2.2-mm was created at the 6 o'clock position starting at the anterior limbus using the 2. 2-mm keratome. The anterior chamber was irrigated with 0.4 mL of 1% non-preservative intracameral li docaine and filled with DisCoVisc. A capsulorrhexis was completed using the cystotome and the Utrata forceps. Hydrodissection was performed with balanced salt solution. The lens nucleus was removed wi th the Phacoemulsification handpiece without incident. Cortex was removed with the irrigation-aspira tion handpiece. The capsular bag was re-inflated using DisCoVisc and an SN60WF 24.5 implant was inse rted with the shooter. The irrigation-aspiration handpiece was used to remove all residual DisCoVisc . The eye was refilled with balanced salt solution and the wound checked and found to be watertight. Topical Maxitrol drops were given. [id number]/[facility] #: [id number]
[2019-02-03] MEDS ORDERED: Lidocaine 1% MPF ** 5 ML VIAL ONE (13:13)
[2019-02-03] MEDS ORDERED: Cyclopentolate 1% OPTH.SOL* 2 ML BTL ONE (13:13)
[2019-02-03] MEDS ORDERED: Phenylephrine OPHTH SOL 2.5%* 2 ML ONE (13:13)
[2019-02-03] MEDS ORDERED: Ketorolac 0.5% OPHTH (NF) 0.5 % 5 ML BTL ONE (13:13)
[2019-02-03] MEDS ORDERED: acetaZOLAMIDE TAB* 250 MG ONE (13:13)
[2019-02-03] MEDS ORDERED: Lidocaine 2% w/ EPI 1:200,000* 20 ML SDV VIAL ONE (13:13)
[2019-02-03] MEDS ORDERED: Povidone Iodine 5% OPTH* 30 ML BTL ONE (13:13)
[2019-02-03] MEDS ORDERED: Neomycin/Polymy/Dex OPTH.SUSP* MAXITROL 0.1% 5 ML ONE (13:13)
[2019-02-03] MEDS ORDERED: Proparacaine 0.5% OPHTH.SOL* 15 ML BTL ONE (13:14)
== END 2019-02-03 08:18 | disposition home or self-care (01) ==
LOC: OREAST 06:14
PROVIDERS: ATTEND Specialist
DX: H25.812 Combined forms of age-related cataract, left eye (principal); E11.9 Type 2 diabetes mellitus without complications; E78.00 Pure hypercholesterolemia, unspecified; M79.7 Fibromyalgia; F32.9 Major depressive disorder, single episode, unspecified; Z96.1 Presence of intraocular lens; Z79.84 Long term (current) use of oral hypoglycemic drugs; Z88.1 Allergy status to other antibiotic agents; Z88.0 Allergy status to penicillin; Z88.8 Allergy status to other drugs, medicaments and biological substances
CPT/HCPCS: A9270-GY; J2250; V2632